=== PATIENT | male | born 1990 | race Asian ===

== ENCOUNTER 2017-12-10 03:11 | Emergency (ER) | payer OTHER ==
[~2017-12-10] VITALS: Ht 180.3 cm; Wt 63.6 kg
[2017-12-10] MEDS ORDERED: CHOLESTEROL MED (03:32)
[2017-12-10 09:53] VITALS: BP 118/71
== END 2017-12-10 10:08 | disposition home or self-care (01) ==
LOC: ED 10:02
DX: F10.120 Alcohol abuse with intoxication, uncomplicated (principal); E78.5 Hyperlipidemia, unspecified
CPT/HCPCS: 99283